=== PATIENT | male | born 1955 | race Caucasian/White ===

== ENCOUNTER 2025-03-10 16:37 | Inpatient (IN) | payer MEDICARE, OTHER ==
[~2025-03-10] VITALS: Ht 172.7 cm; Wt 80.0 kg
[2025-03-10] MEDS: PANTOPRAZOLE 80 MG in IV NS 0.9% 100 ML IV ONE (17:45)
[2025-03-10 18:05] LABS: PLATELET COUNT (AUTO) 137 K/uL (150-450); RED BLOOD CELL COUNT(AUTO) 4.72 MIL/uL (4.5-6.0); RED CELL DISTRIBUTION WIDTH 14.4 % (11.5-15.0); WHITE BLOOD COUNT (AUTO) 6.0 K/uL (4.3-11.0)
[2025-03-10 18:17] LABS: INR 1.2 (0.91-1.10)
[2025-03-10 18:22] LABS: CALCIUM, SERUM 9.2 mg/dL (8.5-10.1); CREATININE 0.8 mg/dL (0.6-1.3); SODIUM SERUM 147 mmol/L (136-145); UREA NITROGEN, BLOOD 20 mg/dL (7-18)
[2025-03-10] MEDS: PANTOPRAZOLE 80 MG in IV NS 0.9% 500 ML IV ONE (18:25)
[2025-03-10 18:27] LABS: ASPARTATE AMINOTRANSFERASE 51 U/L (15-37); TOTAL PROTEIN, SERUM 8.5 g/dL (6.4-8.2)
[2025-03-10] MEDS ORDERED: MAGNESIUM HYDROXIDE 30 ML UDC PO PRN (20:00)
[2025-03-10] MEDS ORDERED: MAG HYDROX/AL HYDROX/SIMETH 30 ML UDC PO PRN (20:00)
[2025-03-10] MEDS ORDERED: ZOLPIDEM TARTRATE 5 MG TABLET PO PRN (20:00)
[2025-03-10] MEDS ORDERED: ACETAMINOPHEN 325 MG TABLET PO PRN (20:00)
[2025-03-10] MEDS ORDERED: Z GUARD REMEDY 4 OZ OINT TP PRN (20:00)
[2025-03-10] MEDS ORDERED: ONDANSETRON HCL/PF 4 MG/2 ML VIAL IVP PRN (20:00)
[2025-03-10 21:35] VITALS: BP 166/96; TEMP 98.7; O2SAT 96
[2025-03-10 22:06] VITALS: BP 144/86
[2025-03-10] MEDS: IV NS 0.9% 1,000 ML IV PRN (23:43)
[2025-03-11] MEDS ORDERED: FAMO20TA80 GT (06:55)
[2025-03-11] MEDS ORDERED: CARV12.52 GT (06:55)
[2025-03-11] MEDS ORDERED: ATOR10TA GT (06:55)
[2025-03-11] MEDS ORDERED: APIX5TAB GT (06:55)
[2025-03-11] MEDS ORDERED: SILO8CAP2 GT (06:55)
[2025-03-11] MEDS ORDERED: VALP250S3 GT (06:55)
[2025-03-11] MEDS ORDERED: AMLO-213 GT (06:55)
[2025-03-11 07:07] LABS: PLATELET COUNT (AUTO) 127 K/uL (150-450); RED BLOOD CELL COUNT(AUTO) 4.54 MIL/uL (4.5-6.0); RED CELL DISTRIBUTION WIDTH 14.5 % (11.5-15.0); WHITE BLOOD COUNT (AUTO) 4.4 K/uL (4.3-11.0)
[2025-03-11 07:26] LABS: ASPARTATE AMINOTRANSFERASE 53.0 U/L (15-37); CALCIUM, SERUM 8.6 mg/dL (8.5-10.1); CREATININE 0.6 mg/dL (0.6-1.3); PHOSPHORUS 3.1 mg/dL (2.5-4.9); SODIUM SERUM 145.0 mmol/L (136-145); TOTAL PROTEIN, SERUM 7.9 g/dL (6.4-8.2); UREA NITROGEN, BLOOD 22.0 mg/dL (7-18)
[2025-03-11 08:00] VITALS: BP 146/96; TEMP 97.7; O2SAT 99
[2025-03-11] MEDS: PANTOPRAZOLE 40 MG VIAL IV SCH (08:53)
[2025-03-11 16:33] LABS: APPEARANCE,URINE SLIGHTLY CLOUDY (CLEAR); BLOOD, URINE 3+ Ery/uL (NEGATIVE); LEUKOCYTE ESTERASE ,URINE NEGATIVE (NEGATIVE); NITRITE, URINE NEGATIVE (NEGATIVE); UGLUCOSE TRACE mg/dL (NEGATIVE)
[2025-03-11 16:58] LABS: ADD URINE CULTURE YES
[2025-03-11 16:59] LABS: SQUAMOUS EPITHELIAL CELL,UR Few /HPF (None Seen)
[2025-03-11] MEDS: CARVEDILOL 12.5 MG TABLET GT SCH (17:37)
[2025-03-11] MEDS: VALPROIC ACID 250 MG/5 ML UDC GT SCH (17:37)
[2025-03-11 20:00] VITALS: BP 119/82; TEMP 97.8; O2SAT 96
[2025-03-12 07:04] LABS: PLATELET COUNT (AUTO) 125 K/uL (150-450); RED BLOOD CELL COUNT(AUTO) 4.15 MIL/uL (4.5-6.0); RED CELL DISTRIBUTION WIDTH 14.1 % (11.5-15.0); WHITE BLOOD COUNT (AUTO) 3.7 K/uL (4.3-11.0)
[2025-03-12 07:19] LABS: CALCIUM, SERUM 8.3 mg/dL (8.5-10.1); CREATININE 0.6 mg/dL (0.6-1.3); PHOSPHORUS 2.5 mg/dL (2.5-4.9); SODIUM SERUM 147.0 mmol/L (136-145); UREA NITROGEN, BLOOD 19.0 mg/dL (7-18)
[2025-03-12 08:00] VITALS: BP 175/86; TEMP 97.6; O2SAT 97
[2025-03-12] MEDS: PANTOPRAZOLE 40 MG/PACK PACK GT SCH (09:22)
[2025-03-12] MEDS: AMLODIPINE BESYLATE 10 MG TABLET GT SCH (09:22)
[2025-03-12 11:13] VITALS: BP 151/81; O2SAT 97
[2025-03-12] MEDS ORDERED: ANESTHESIA TRAY IN PYXIS 1 EA TRAY MC ONE (14:24)
[2025-03-12 16:00] VITALS: BP 165/92; TEMP 98.2; O2SAT 96
[2025-03-12 18:23] VITALS: BP 149/93; TEMP 98.2; O2SAT 96
[2025-03-12 20:00] VITALS: BP 125/94; TEMP 97.5; O2SAT 97
[2025-03-12 21:30] VITALS: BP 125/94; TEMP 97.5; O2SAT 97
[2025-03-13 07:49] LABS: PLATELET COUNT (AUTO) 132 K/uL (150-450); RED BLOOD CELL COUNT(AUTO) 4.24 MIL/uL (4.5-6.0); RED CELL DISTRIBUTION WIDTH 13.7 % (11.5-15.0); WHITE BLOOD COUNT (AUTO) 4.2 K/uL (4.3-11.0)
[2025-03-13 08:00] VITALS: BP 156/78; TEMP 97.5; O2SAT 96
[2025-03-13 08:08] LABS: ASPARTATE AMINOTRANSFERASE 59.0 U/L (15-37); CALCIUM, SERUM 8.5 mg/dL (8.5-10.1); CREATININE 0.5 mg/dL (0.6-1.3); PHOSPHORUS 2.9 mg/dL (2.5-4.9); SODIUM SERUM 143.0 mmol/L (136-145); TOTAL PROTEIN, SERUM 7.3 g/dL (6.4-8.2); UREA NITROGEN, BLOOD 15.0 mg/dL (7-18)
[2025-03-13] MEDS ORDERED: PANT40TA2 PO (10:51)
[2025-03-13] MEDS: POTASSIUM CHLORIDE 20 MEQ POWDER PACKET GT ONE (11:55)
[2025-03-13 16:00] VITALS: BP 150/94; TEMP 98.6; O2SAT 96
[2025-03-13 20:00] VITALS: BP 161/87; TEMP 98.2; TEMP 98.7; O2SAT 97
[2025-03-13] MEDS: hydrALAZINE HCL IV 20 MG VIAL IV ONE (20:51)
[2025-03-13 21:10] VITALS: BP 135/79; TEMP 98.2; O2SAT 97
[2025-03-13 21:40] VITALS: BP 167/80; TEMP 98.2; O2SAT 97
== END 2025-03-13 21:20 | disposition home health service (06) | DRG 377 ==
LOC: ER 16:37 → TELE 21:09 → MED 21:40
PROVIDERS: ADMIT Nurse Practitioner Acute Care
PROC: 0DB68ZX Excision of Stomach, Via Natural or Artificial Opening Endoscopic, Diagnostic (ICD-10-PCS; principal; 2025-03-12 20:00)
DX: K29.71 Gastritis, unspecified, with bleeding (principal); G93.41 Metabolic encephalopathy; D68.59 Other primary thrombophilia; E87.0 Hyperosmolality and hypernatremia; E44.1 Mild protein-calorie malnutrition; E86.1 Hypovolemia; E88.09 Other disorders of plasma-protein metabolism, not elsewhere classified; R13.10 Dysphagia, unspecified; Z74.01 Bed confinement status; Z87.820 Personal history of traumatic brain injury; R74.01 Elevation of levels of liver transaminase levels; F03.90 Unspecified dementia, unspecified severity, without behavioral disturbance, psychotic disturbance, mood disturbance, and anxiety; Z93.1 Gastrostomy status; Z68.26 Body mass index [BMI] 26.0-26.9, adult; K29.80 Duodenitis without bleeding; E80.6 Other disorders of bilirubin metabolism; K20.90 Esophagitis, unspecified without bleeding
CPT/HCPCS: 36415; 70450-TC; 71045-TC; 80048-TC; 80053-TC; 80076-TC; 81001; 82962-TC; 83690-TC; 83735-TC; 84100-TC; 84484-TC; 85025-TC; 85027-TC; 85730-TC; 86850-TC; 87086-TC; 93307-TC; A4223; G0378; J0360; J2470; J2704; J3490; J7030; J7040